=== PATIENT | female | born 1995 | race Caucasian/White ===

== ENCOUNTER → 2019-05-25 | Outpatient (CLI) | payer MEDICAID ==
[~2019-05-25] MED LIST: AMOX-358 PO; CODE-54 PO; Ibuprofen PO; METR500T PO; PNV51CAP PO
--- NOTE | 2019-05-25 14:10 | Diagnostic Imaging Report ---
INDICATION: survey. TECHNIQUE: Multiple real-time grayscale images were obtained over the gravid uterus. COMPARISON: None. FINDINGS: There is a single live fetus in a breech presentation. heart rate was recorded at 139 beats per minute. Placenta is fundal. Amniotic fluid volume is normal. Cervical length is 4.4 cm. survey shows kidneys, bladder and stomach to be unremarkable. brain is unremarkable. There is a four-chamber heart. There is a three-vessel cord with normal insertion. spine is unremarkable. Maternal adnexa was not evaluated. Biometrical measurements are as follows: Biparietal 4.87 cm, age 20 weeks 6 days. Head circumference 18.49 cm, age 20 weeks 6 days. Abdominal circumference 17.20 cm, age 22 weeks 2 days. Femur length 3.53 cm, age 21 weeks 2 days. Sonographic estimate age: 21 weeks 3 days. Sonographic estimated date of delivery: 10/02/2019. Estimated Weight: 435 gm (+/- 64 gm). LMP percentile: 98%. heart rate: 139 beats per minute. number: 1 of 1. IMPRESSION: Single live IUP 21 weeks 3 days gestational age. The estimated date of confinement sonographically is 10/02/2019. Dictated by: Dictated on workstation # [id number]
== END ==
LOC: RAD 11:23
PROVIDERS: ATTEND Obstetrics & Gynecology
DX: Z36.89 Encounter for other specified antenatal screening (principal); Z3A.21 21 weeks gestation of pregnancy
CPT/HCPCS: 76805

== ENCOUNTER 2019-08-11 21:32 | Outpatient (CLI) | payer MEDICAID ==
[~2019-08-11] VITALS: Ht 180.3 cm; Wt 138.8 kg
--- NOTE | 2019-08-11 21:38 | NUR ---
BETY SUNG Jackie presented to unit via from ED, accompanied by SO, with c/o CONTRACTIONS. PINEDABETY Jackie weighed, gowned, voided, and to bed. EFHM and TOCO applied, VS taken. MICHAELBETY Yanes oriented to bed controls, call light, TV, heat, and A/C controls. Pt. denies bleeding or leaking of fluids. Confirms movement.
[2019-08-11 21:55] VITALS: BP 125/62
[2019-08-11 22:05] LABS: BILIRUBIN,URINE NEGATIVE (NEGATIVE); CLARITY,URINE CLEAR; COLOR,URINE YELLOW; GLUCOSE, URINE (UA) NEGATIVE (NEGATIVE); KETONES,URINE NEGATIVE (NEGATIVE); LEUKOCYTE ESTERASE ,URINE NEGATIVE (NEGATIVE); NITRITE,URINE NEGATIVE (NEGATIVE); PH,URINE 6 (5-9); PROTEIN,URINE NEGATIVE (NEGATIVE)
[2019-08-11 22:12] LABS: RBC,URINE 0-2 /HPF
[2019-08-11 22:13] LABS: BACTERIA,URINE TRACE /HPF; WBC,URINE 0-2 /HPF
--- NOTE | 2019-08-11 22:26 | NUR ---
Dr. Hammond called and informed that pt of Dr. Aparicio presented to the ER with complaints of contractions. Dr. Hammond informed that pt is 32/6, , and denies any bleeding or LOF. Dr. Hammond informed that urine was clean and showed no signs of UTI. Informed that pt has had two contractions in the thirty minutes of being on the monitor. Ctxs are about 10 minutes apart lasting 60-70seconds. informed that strip is reactive and vitals are WNL. states to ask pt is she has had intercourse and to let her know. also orders to continue monitoring pt at this time.
--- NOTE | 2019-08-11 22:29 | NUR ---
Dr. Hammond informed that pt has not had intercourse recently. orders to be checked and watch for an hour, then rechecked.
--- NOTE | 2019-08-11 23:57 | NUR ---
Dr. Hammond called with results of SVE and contraction pattern. states that pt can go home, but to provide education on labor process.
[2019-08-12] VITALS: BP 117/59
[2019-08-12 00:13] VITALS: BP 125/62
--- NOTE | 2019-08-14 09:33 | Physician Query-Final Dx ---
Clinic Account Progress/Dx Physician Query: Please give diagnosis Please include # weeks gestation Date of Service Aug 11, 2019 at 21:32 PEPE ROWAN Aug 14, 2019 09:33 POS
== END 2019-08-12 00:10 | disposition home or self-care (01) ==
LOC: LDRP 21:32 → WSo 21:32
PROVIDERS: ATTEND Obstetrics & Gynecology
DX: O62.8 Other abnormalities of forces of labor (principal); Z3A.31 31 weeks gestation of pregnancy
CPT/HCPCS: 81000; 99213

== ENCOUNTER 2019-09-28 17:21 | Outpatient (CLI) | payer MEDICAID ==
[~2019-09-28] VITALS: Ht 177.8 cm; Wt 144.0 kg
--- NOTE | 2019-09-28 17:05 | NUR ---
BETY SUNG presented to unit via ambulatory from ED, accompanied by father of baby , with c/o CONTRACTIONS. BETY SUNG weighed, gowned, voided, and to bed. EFHM and TOCO applied, VS taken. BETY SUNG oriented to bed controls, call light, TV, heat, and A/C controls.
--- NOTE | 2019-09-28 17:15 | NUR ---
Dr Aparicio here - informed him she just arrived. 1806 Dr Aparicio called in to L&D to inquire about pt status. 3-4 cms, 40%,-3 with contractions 2-3 minutes apart. Physician will call again after 190. Pt states she was 3 cms in office yesterday.
[2019-09-28 18:04] VITALS: BP 112/58
--- NOTE | 2019-09-28 19:43 | NUR ---
REFER TO LABOR FLOW SHEET.
--- NOTE | 2019-09-28 19:57 | NUR ---
DISCHARGE PAPERS PROVIDED AND REVIEWED WITH PT, PT VERBALIZES UNDERSTANDING AND DENIES ANY QUESTIONS AT THIS TIME. PAPER SIGNED.
--- NOTE | 2019-09-28 20:00 | NUR ---
PT DISCHARGED FROM [facility] TO [facility] IN STABLE CONDITION ACC BY S/O.
--- NOTE | 2019-09-29 08:06 | Physician Query-Final Dx ---
PEPE ROWAN 09/29/19 0805: Clinic Account Progress/Dx Physician Query: Please give diagnosis Please give # weeks gestation Date of Service Sep 28, 2019 at 17:21 ELVIS GREENE DO 09/29/19 0958: Clinic Account Progress/Dx DIAGNOSIS: Diagnosis 38 week IUP Prolonged latent phase labor PEPE ROWAN Sep 29, 2019 08:05 POSELVIS GREENE DO Sep 29, 2019 09:58 POS
== END 2019-09-28 20:00 | disposition home or self-care (01) ==
LOC: LDRP 17:21 → WSo 17:21
PROVIDERS: ATTEND Obstetrics & Gynecology
DX: O63.9 Long labor, unspecified (principal); Z3A.38 38 weeks gestation of pregnancy
CPT/HCPCS: 99213

== ENCOUNTER 2019-10-04 06:00 | Inpatient (IN) | payer MEDICAID ==
[~2019-10-04] VITALS: Ht 177 cm; Wt 142.6 kg
[2019-10-04] VITALS (41 sets, daily range): BP systolic 98–147; BP diastolic 53–93
[2019-10-04] MEDS ORDERED: D5 LR IV SOLUTION 1,000 ML IV ONE (06:21)
[2019-10-04] MEDS ORDERED: D5 LR IV SOLUTION 1,000 ML IV SCH (06:23)
[2019-10-04] MEDS ORDERED: MINERAL OIL CONCENTRATE 99.9% 15 ML UDC TOP PRN (06:30)
[2019-10-04 06:51] LABS: BASOPHILS % (AUTO) 0 % (0-10); EOSINOPHILS # (AUTO) 0.1 10^3/uL (0.0-0.3); EOSINOPHILS % (AUTO) 1 % (0-10); HEMATOCRIT 33 % (35-52); HEMOGLOBIN 10.7 G/DL (11.5-16.0); LYMPHOCYTES # (AUTO) 2.3 X 10^3 (1.0-4.0); LYMPHOCYTES % (AUTO) 23 % (12-44); MEAN CORPUSCULAR HEMOGLOBIN 29 PG (25-34); MEAN CORPUSCULAR HGB CONC 32 G/DL (32-36); MEAN CORPUSCULAR VOLUME 88 FL (80-99); MONOCYTES % (AUTO) 10 % (0-12); NEUTROPHILS # (AUTO) 6.7 X 10^3 (1.8-7.8); NEUTROPHILS % (AUTO) 66 % (42-75); PLATELET COUNT 183 10^3/uL (130-400); RED CELL DISTRIBUTION WIDTH 13.4 % (10.0-14.5); WHITE BLOOD COUNT 10.1 10^3/uL (4.3-11.0)
[2019-10-04] MEDS ORDERED: OXYTOCIN/NORMAL SALINE 500 ML IV SCH ×2 (08:20→16:07)
--- NOTE | 2019-10-04 08:53 | History & Physical-OB ---
OB - Chief Complaint & HPI Date/Time Date of Admission: Date of Admission: Oct 04, 2019 at 06:15 Date seen by a Provider: Oct 04, 2019 Time Seen by a Provider: 08:00 Chief Complaint/History OB-Reason for Admission/Chief: Induction of Labor Hx : 3 Hx Para: 1 Expected Date of Delivery: Oct 11, 2019 Gestational Age in Weeks: 39 Indication for induction: other (elective) Admission Nurse Assessment Rev: Yes History of Labs A pos Antibody neg RI RPR NR HBsAg NR HIV NR GC neg GBS neg Allergies and Home Medications Allergies Coded Allergies: No Known Drug Allergies (Unverified , 09/28/19) Patient Home Medication List Home Medication List Reviewed: Yes OB - History Hx of Present Care: Yes Ultrasounds: Normal mid trimester US Obstetrical Complications: None Medical Complications: None Delivery History Adverse Rxn to Tranfusion: No Patient Past Medical History n/a Social History/Family History HIV/AIDS: No Recent Infectious Disease Expo: No Sexually Transmitted Disease: No Alcohol Use: Denies Use Recreational Drug Use: No 2nd Hand Smoke Exposure: No Immunizations Hepatitis A: No Hepatitis B: No Tetanus Booster (TDap): Unknown Date of Influenza Vaccine: Jul 18, 2019 OB - Admission Exam Physical Exam Vitals: Vital Signs 10/04/19 06:54 Temp 36.1 Pulse 102 Resp 18 Pulse Ox 97 O2 Delivery Room Air HEENT: NCAT Heart: Rhythm Normal Lungs: Clear Abdomen: Gravid Extremities: Normal Reflexes: Normal Cervical Dilatation: 3cm Effacement: 75% Station: -1 Membranes: Intact Heart Rate: 130's Accelerations: Accelerations Present Decelerations: No Decelerations Short Term Variability: Present Shrinker Variability: Average (6-25) Contractions on Admission: 6-10 Minutes Apart Intensity: Moderate Sanchez Scoring Tool (Modified) Dilation (cm): 3-4cm (2) Effacement (%): 51-79% (2) Descent/Station: -1,0 (2) Cervix Consistency: Soft (2) Cervix Position: Anterior (2) Add 1 point for: Each previous vaginal delivery (1) Labs Laboratory Tests Test 10/04/19 06:40 Range/Units White Blood Count 10.1 4.3-11.0 10^3/uL Red Blood Count 3.74 L 4.35-5.85 10^6/uL Hemoglobin 10.7 L 11.5-16.0 G/DL Hematocrit 33 L 35-52 % Mean Corpuscular Volume 88 80-99 FL Mean Corpuscular Hemoglobin 29 25-34 PG Mean Corpuscular Hemoglobin Concent 32 32-36 G/DL Red Cell Distribution Width 13.4 10.0-14.5 % Platelet Count 183 130-400 10^3/uL Mean Platelet Volume 7.4-10.4 FL Neutrophils (%) (Auto) 66 42-75 % Lymphocytes (%) (Auto) 23 12-44 % Monocytes (%) (Auto) 10 0-12 % Eosinophils (%) (Auto) 1 0-10 % Basophils (%) (Auto) 0 0-10 % Neutrophils # (Auto) 6.7 1.8-7.8 X 10^3 Lymphocytes # (Auto) 2.3 1.0-4.0 X 10^3 Monocytes # (Auto) 1.0 0.0-1.0 X 10^3 Eosinophils # (Auto) 0.1 0.0-0.3 10^3/uL Basophils # (Auto) 0.0 0.0-0.1 10^3/uL OB - Assessment/Plan/Diagnosis Assessment Assessment: active labor Admission Dx 24 yo @ 39 weeks Elective induction of labor GBS neg Admission Status: Inpatient Order (span 2 midnights) Reason for Inpatient Admission: Term induction of labor Plan Induction Method: ELVIS SOMMERS DO Oct 04, 2019 08:53
[2019-10-04] MEDS ORDERED: SUFENTA 0.6MCG/ML BUPIVA 0.125 100 ML ONE (09:48)
[2019-10-04] MEDS ORDERED: LACTATED RINGERS 1,000 ML IV SCH (10:27)
[2019-10-04] MEDS ORDERED: METOCLOPRAMIDE INJ 10 MG/2 ML (REGLAN) IV PRN (10:30)
[2019-10-04] MEDS ORDERED: ONDANSETRON 4 MG/2 ML (SDV) Z0FRAN IV PRN (10:30)
[2019-10-04] MEDS ORDERED: EPIDURAL (SUFENTA 0.6MCG/ML BUPIVA 0.125%) 100 ML BAG EPI SCH (10:30)
[2019-10-04] MEDS ORDERED: NALOXONE 0.4 MG/ML 1 ML (NARCAN) VIAL IV PRN ×2 (10:30)
[2019-10-04] MEDS ORDERED: diphenhydrAMINE 50 MG/ML INJ (BENADRYL) IV PRN (10:30)
[2019-10-04] MEDS ORDERED: CATHETER FLUSH 10 ML SYR IV SCH (14:00)
[2019-10-04] MEDS ORDERED: IBUPROFEN 600 MG (MOTRIN) TAB PO ONE (16:09)
--- NOTE | 2019-10-04 16:51 | OB Labor & Delivery Record ---
L&D History Date of Service Date of Service: Oct 04, 2019 History Expected Date of Delivery: Oct 11, 2019 Gestational Age in Weeks: 39 Hx : 3 Hx Para: 1 Complications Events: Routine care Operative Indications (Cesarea: N/A-Vaginal Delivery Intrapartal Events: None L&D Stage1 Stage One Onset of Labor - Date: Oct 04, 2019 Monitors and Tracing Monitor Mode: External Heart Rate: 125 Monitor Accelerations: Uniform Monitor Decelerations: Variable Station: -1 Senior Care Variability: Average (6-10) Short Term Variability: Present Presentation: Vertex Vital Signs VS - Last 72 Hours, by Label 10/04/19 10/04/19 10/04/19 10/04/19 06:54 07:40 08:30 08:45 Temp 36.1 36.2 Pulse 102 90 90 83 Resp 18 18 18 18 B/P (MAP) 128/62 (84) 128/80 (96) 131/87 (102) Pulse Ox 97 O2 Delivery Room Air Room Air Room Air Room Air 10/04/19 10/04/19 10/04/19 10/04/19 09:00 09:15 09:30 09:45 Pulse 93 95 86 88 Resp 18 18 18 18 B/P (MAP) 131/90 (104) 136/68 (90) 132/78 (96) 131/76 (94) O2 Delivery Room Air Room Air Room Air Room Air 10/04/19 10/04/19 10/04/19 10/04/19 10:00 10:05 10:10 10:15 Temp 36.3 Pulse 80 96 91 88 Resp 18 18 18 18 B/P (MAP) 136/69 (91) 137/71 (93) 141/78 (99) 133/67 (89) Pulse Ox 100 100 97 O2 Delivery Room Air Room Air Room Air Room Air 10/04/19 10/04/19 10/04/19 10/04/19 10:15 10:20 10:30 10:33 Pulse 88 88 90 84 Resp 18 18 18 18 B/P (MAP) 133/67 (89) 123/62 (82) 121/67 (85) 98/54 (69) Pulse Ox 100 99 98 98 O2 Delivery Room Air Room Air Room Air Room Air 10/04/19 10/04/19 10/04/1918/19 10:36 10:39 10:42 10:45 Pulse 88 79 76 80 Resp 18 18 18 18 B/P (MAP) 108/57 (74) 111/57 (75) 107/53 (71) 109/59 (76) Pulse Ox 98 98 98 98 O2 Delivery Room Air Room Air Room Air Room Air 10/04/19 10/04/19 10/04/19 10/04/19 10:50 10:55 11:00 11:05 Pulse 87 86 82 83 Resp 18 18 18 18 B/P (MAP) 110/58 (75) 111/59 (76) 116/56 (76) 119/58 (78) Pulse Ox 98 100 99 100 O2 Delivery Room Air Room Air Room Air Room Air 10/04/19 10/04/19 10/04/19 10/04/19 11:10 11:15 11:30 11:45 Pulse 92 82 83 85 Resp 18 18 18 18 B/P (MAP) 127/59 (81) 114/59 (77) 110/55 (73) 115/57 (76) Pulse Ox 99 98 99 99 O2 Delivery Room Air Room Air Room Air Room Air 10/04/19 10/04/19 10/04/19 10/04/19 11:45 12:00 12:15 12:30 Temp 36.1 Pulse 97 93 84 Resp 18 18 18 B/P (MAP) 123/59 (80) 129/66 (87) 122/63 (82) Pulse Ox 99 99 99 O2 Delivery Room Air Room Air Room Air Room Air 10/04/19 10/04/19 10/04/19 10/04/19 12:45 13:00 13:15 13:30 Pulse 91 80 90 88 Resp 18 18 18 18 B/P (MAP) 138/93 (108) 130/62 (84) 124/58 (80) 129/78 (95) Pulse Ox 99 98 99 99 O2 Delivery Room Air Room Air Room Air Room Air 10/04/19 10/04/19 10/04/19 10/04/19 14:14 14:29 14:44 15:03 Temp 36.9 36.4 36.8 36.9 Pulse 111 114 104 92 Resp 18 18 18 18 B/P (MAP) 146/75 (98) 147/63 (91) 121/58 (79) 121/63 (82) O2 Delivery Room Air Room Air Room Air Room Air 10/04/19 10/04/19 15:14 15:30 Pulse 94 95 Resp 18 18 B/P (MAP) 126/70 (88) 145/63 (90) O2 Delivery Room Air Room Air Rupture of Membranes Spontaneous Ruture of Membrane: No Amniotic Membrane Rupture Time: 0800 Amniotic Membrane Fluid Desc.: Clear Vaginal Bleeding Description: Normal Show Induction/Anesthesia Epidural Cath Placement - Time: 1013 Progress/Notes Patient progressed with complete and +2 station using 4 u Pitocin dosing and AROM L&D Stage2 Stage Two Stage II Date: Oct 04, 2019 Monitors and Tracing Monitor Mode: External Heart Rate: 125 Monitor Accelerations: Uniform Monitor Decelerations: Variable Senior Care Variability: Average (6-10) Short Term Variability: Present Position: Right Occiput Anterior Presentation: Vertex Cord Descript/Complications Cord Vessel Description: 3 Vessels Complications nuchal cord reduced x 1 Delivery Type Infant Delivery Method: Spontaneous Vaginal Anterior Shoulder: Right Episiotomy/Perineal Laceration Laceraction(s)/Extensions: Yes Episiotomy Description: Perineal Extension/lac, 2nd degree Degree (describe repair) 2nd degree perineal laceration repaired using 3-0 rapide vicryl suture Condition of Delivery 1 minute Comment: 8 5 minute Comment: 9 Notes Live male infant weight 9lbs 9oz Condition of Infant Condition of Infant: Living Exam: No Observed Abnormalities Resuscitation Resuscitation: N/A - Spontaneous Resp L&D Stage3 Stage Three Stage III Date: Oct 04, 2019 Pictocin Pitocin Administration mu/min: 4 Pitocin ml/hr: 4 Pitocin Administration Comment: 0930 pitocin increased Placenta Delivery Placenta Delivery: Spontaneous Delivery Summary Summary Estimated blood loss (mL): 300 Attending at delivery: Elvis Greene DO Condition of Delivery Examined: Cervix Examined, Uterus Explored Post Hemorrhage: No Condition of Mother stable Condition of Infant (s) stable ELVIS GREENE DO Oct 04, 2019 16:51
[2019-10-04] MEDS ORDERED: IBUPROFEN 600 MG (MOTRIN) TAB PO SCH (17:00)
[2019-10-04] MEDS: WITCH HAZEL(TUCKS) 40 EA JAR TOP PRN (17:55)
[2019-10-04] MEDS: BENZOCAINE/MENTHOL (DERMOPLAST) 56 ML CAN TP PRN (17:55)
[2019-10-04] MEDS: IBUPROFEN 600 MG (MOTRIN) TAB PO SCH (21:56)
[2019-10-04] MEDS: ACETAMINOPHEN 500 MG TAB (TYLENOL) PO SCH (21:56)
[2019-10-04] MEDS: DOCUSATE SODIUM 100 MG (COLACE) CAP PO SCH (21:56)
[2019-10-04] MEDS ORDERED: Benzocaine/Menthol TP (21:59)
[2019-10-04] MEDS ORDERED: IBUP-844 PO (21:59)
[2019-10-04] MEDS ORDERED: DOCU100C37 PO (21:59)
--- NOTE | 2019-10-04 22:00 | Discharge Inst-Women's Service ---
Discharge Inst-Women's Serv Depart Medication/Instructions New, Converted or Re-Newed RX: RX on Chart Final Diagnosis PPD 1 NVD Problems Reviewed?: Yes Consults/Follow Up Additional Follow Up: Yes Orders/Referrals Dr. Greene in 6 weeks Activity Activity: Activity as Tolerated Driving Instructions: No Driving for 1 Week NO SMOKING: NO SMOKING Nothing Inside Vagina: No Douching, No [place], No Tampons Diet Discharge Diet: No Restrictions Symptoms to Report to : Bleeding Excessive, Pain Increased, Fever Over 101 Degrees F, Vaginal Bleeding Increase, Questions/Concerns For Any Problems or Questions: Contact Your Physician ELVIS GREENE DO Oct 04, 2019 22:00
[2019-10-05] VITALS: BP 111/53
[2019-10-05] MEDS: IBUPROFEN 600 MG (MOTRIN) TAB PO SCH ×4 (04:22→21:48)
[2019-10-05 04:24] VITALS: BP 130/89
[2019-10-05 06:14] LABS: BASOPHILS % (AUTO) 0 % (0-10); EOSINOPHILS # (AUTO) 0.1 10^3/uL (0.0-0.3); EOSINOPHILS % (AUTO) 1 % (0-10); HEMATOCRIT 31 % (35-52); HEMOGLOBIN 9.8 G/DL (11.5-16.0); LYMPHOCYTES # (AUTO) 2.9 X 10^3 (1.0-4.0); LYMPHOCYTES % (AUTO) 28 % (12-44); MEAN CORPUSCULAR HEMOGLOBIN 28 PG (25-34); MEAN CORPUSCULAR HGB CONC 32 G/DL (32-36); MEAN CORPUSCULAR VOLUME 89 FL (80-99); MONOCYTES # (AUTO) 0.9 X 10^3 (0.0-1.0); MONOCYTES % (AUTO) 9 % (0-12); NEUTROPHILS # (AUTO) 6.6 X 10^3 (1.8-7.8); NEUTROPHILS % (AUTO) 63 % (42-75); PLATELET COUNT 163 10^3/uL (130-400); RED CELL DISTRIBUTION WIDTH 13.6 % (10.0-14.5); WHITE BLOOD COUNT 10.5 10^3/uL (4.3-11.0)
[2019-10-05 08:00] VITALS: BP 123/65
[2019-10-05] MEDS: DOCUSATE SODIUM 100 MG (COLACE) CAP PO SCH ×2 (08:18→21:48)
[2019-10-05] MEDS: ACETAMINOPHEN 500 MG TAB (TYLENOL) PO SCH ×2 (08:19→16:00)
--- NOTE | 2019-10-05 08:24 | Postpartum Progress Note ---
Note Note Day # 1 Subjective: Patient is without complaints. Ambulating, voiding. Tolerating a regular diet without nausea or vomiting. Normal lochia. Pain is well controlled with oral pain medications. Objective: Physical Exam: General - Alert and oriented, no apparent distress Abdomen - Soft, appropriately tender to palpation, non-distended, fundus firm at umbilicus Extremities - no edema, negative Joselito's bilaterally Assessment: POD 1 NVD Acute blood loss anemia Plan: Routine care. Encourage breast feeding. Encourage ambulation. Ferrous sulfate supplementation. Plan for discharge today Vitals - Labs Vital Signs - I&O Vital Signs Date Time Temp Pulse Resp B/P (MAP) Pulse Ox O2 Delivery O2 Flow Rate FiO2 10/05/19 04:24 36.4 74 18 130/89 (103) Room Air 10/05/19 00:00 36.7 68 18 111/53 (72) 97 Room Air 10/04/19 20:59 36.7 75 18 114/76 (89) 98 Room Air 10/04/19 15:30 95 18 145/63 (90) Room Air 10/04/19 15:14 94 18 126/70 (88) Room Air 10/04/19 15:03 36.9 92 18 121/63 (82) Room Air 10/04/19 14:44 36.8 104 18 121/58 (79) Room Air 10/04/19 14:29 36.4 114 18 147/63 (91) Room Air 10/04/19 14:14 36.9 111 18 146/75 (98) Room Air 10/04/19 13:30 88 18 129/78 (95) 99 Room Air 10/04/19 13:15 90 18 124/58 (80) 99 Room Air 10/04/19 13:00 80 18 130/62 (84) 98 Room Air 10/04/19 12:45 91 18 138/93 (108) 99 Room Air 10/04/19 12:30 36.1 84 18 122/63 (82) 99 Room Air 10/04/19 12:15 93 18 129/66 (87) 99 Room Air 10/04/19 12:00 97 18 123/59 (80) 99 Room Air 10/04/19 11:45 Room Air 10/04/19 11:45 85 18 115/57 (76) 99 Room Air 10/04/19 11:30 83 18 110/55 (73) 99 Room Air 10/04/19 11:15 82 18 114/59 (77) 98 Room Air 10/04/19 11:10 92 18 127/59 (81) 99 Room Air 10/04/19 11:05 83 18 119/58 (78) 100 Room Air 10/04/19 11:00 82 18 116/56 (76) 99 Room Air 10/04/19 10:55 86 18 111/59 (76) 100 Room Air 10/04/19 10:50 87 18 110/58 (75) 98 Room Air 10/04/19 10:45 80 18 109/59 (76) 98 Room Air 10/04/19 10:42 76 18 107/53 (71) 98 Room Air 10/04/19 10:39 79 18 111/57 (75) 98 Room Air 10/04/19 10:36 88 18 108/57 (74) 98 Room Air 10/04/19 10:33 84 18 98/54 (69) 98 Room Air 10/04/19 10:30 90 18 121/67 (85) 98 Room Air 10/04/19 10:20 88 18 123/62 (82) 99 Room Air 10/04/19 10:15 88 18 133/67 (89) 100 Room Air 10/04/19 10:15 88 18 133/67 (89) 97 Room Air 10/04/19 10:10 91 18 141/78 (99) 100 Room Air 10/04/19 10:05 96 18 137/71 (93) 100 Room Air 10/04/19 10:00 36.3 80 18 136/69 (91) Room Air 10/04/19 09:45 88 18 131/76 (94) Room Air 10/04/19 09:30 86 18 132/78 (96) Room Air 10/04/19 09:15 95 18 136/68 (90) Room Air 10/04/19 09:00 93 18 131/90 (104) Room Air 10/04/19 08:45 83 18 131/87 (102) Room Air 10/04/19 08:30 90 18 128/80 (96) Room Air I & O 10/05/19 07:00 Intake Total 1000 ml Balance 1000 ml Labs Laboratory Tests 10/05/19 05:44: White Blood Count 10.5, Red Blood Count 3.46L, Hemoglobin 9.8L, Hematocrit 31L, Mean Corpuscular Volume 89, Mean Corpuscular Hemoglobin 28, Mean Corpuscular Hemoglobin Concent 32, Red Cell Distribution Width 13.6, Platelet Count 163, Mean Platelet Volume , Neutrophils (%) (Auto) 63, Lymphocytes (%) (Auto) 28, Monocytes (%) (Auto) 9, Eosinophils (%) (Auto) 1, Basophils (%) (Auto) 0, Neutrophils # (Auto) 6.6, Lymphocytes # (Auto) 2.9, Monocytes # (Auto) 0.9, E osinophils # (Auto) 0.1, Basophils # (Auto) 0.0 ELVIS GREENE DO Oct 05, 2019 08:24
--- NOTE | 2019-10-05 10:56 | Anesthesia-Regional Post-Op ---
Regional Patient Condition Mental Status: Alert, Oriented x3 Circulation: Same as Pre-Op Headache: Absent Sensation: Full Recovery Motor Block: Absent Post Op Complications Complications None Follow Up Care/Instructions Patient Instructions None needed. Anesthesia/Patient Condition Patient is doing well, no complaints, stable vital signs, no apparent adverse anesthesia problems. No complications reported per nursing. SHELLEY BROWN CRNA Oct 05, 2019 10:56
[2019-10-05 14:13] VITALS: BP 125/57
[2019-10-05 21:46] VITALS: BP 120/74
[2019-10-06] MEDS: ACETAMINOPHEN 500 MG TAB (TYLENOL) PO SCH ×2 (01:07→09:20)
[2019-10-06 03:47] VITALS: BP 120/83
[2019-10-06] MEDS: IBUPROFEN 600 MG (MOTRIN) TAB PO SCH ×2 (03:48→09:19)
[2019-10-06 09:18] VITALS: BP 117/65
[2019-10-06] MEDS: WITCH HAZEL(TUCKS) 40 EA JAR TOP PRN (09:18)
[2019-10-06] MEDS: BENZOCAINE/MENTHOL (DERMOPLAST) 56 ML CAN TP PRN (09:19)
[2019-10-06] MEDS: DOCUSATE SODIUM 100 MG (COLACE) CAP PO SCH (09:20)
--- NOTE | 2019-10-06 10:11 | Postpartum Progress Note ---
Note Note Day # 1 Subjective: Patient is without complaints. Ambulating, voiding. Tolerating a regular diet without nausea or vomiting. Normal lochia. Pain is well controlled with oral pain medications. Objective: Physical Exam: General - Alert and oriented, no apparent distress Abdomen - Soft, appropriately tender to palpation, non-distended, fundus firm at umbilicus Extremities - no edema, negative Joselito's bilaterally Assessment: PPD 2 NVD Acute blood loss anemia Plan: Routine care. Encourage breast feeding. Encourage ambulation. Ferrous sulfate supplementation. Plan for discharge today Vitals - Labs Vital Signs - I&O Vital Signs Date Time Temp Pulse Resp B/P (MAP) Pulse Ox O2 Delivery O2 Flow Rate FiO2 10/06/19 03:47 36.6 66 16 120/83 (95) 98 Room Air 10/05/19 21:46 36.1 70 16 120/74 (89) 99 Room Air 10/05/19 14:13 36.4 84 16 125/57 (79) 96 Room Air ELVIS GREENE DO Oct 06, 2019 10:11
== END 2019-10-06 13:00 | disposition home or self-care (01) | DRG 806 ==
LOC: LDRP 06:15
PROVIDERS: ADMIT Obstetrics & Gynecology; ATTEND Obstetrics & Gynecology
PROC: 10E0XZZ Delivery of Products of Conception, External Approach (ICD-10-PCS; principal; 2019-10-04)
PROC: 0KQM0ZZ Repair Perineum Muscle, Open Approach (ICD-10-PCS; 2019-10-04)
PROC: 3E033VJ Introduction of Other Hormone into Peripheral Vein, Percutaneous Approach (ICD-10-PCS; 2019-10-04)
PROC: 10907ZC Drainage of Amniotic Fluid, Therapeutic from Products of Conception, Via Natural or Artificial Opening (ICD-10-PCS; 2019-10-04)
PROC: 0W8NXZZ Division of Female Perineum, External Approach (ICD-10-PCS; 2019-10-04)
DX: O69.81X0 Labor and delivery complicated by cord around neck, without compression, not applicable or unspecified (principal); Z37.0 Single live birth; D62 Acute posthemorrhagic anemia; O90.81 Anemia of the puerperium; Z3A.39 39 weeks gestation of pregnancy
CPT/HCPCS: 36415; 85025; 86850; 86900; 86901

== ENCOUNTER → 2023-04-16 | Outpatient (CLI) | payer MEDICAID ==
[~2023-04-16] MED LIST changes: +Benzocaine/Menthol TP; +DOCU100C37 PO; +IBUP-844 PO
--- NOTE | 2023-04-16 15:47 | Diagnostic Imaging Report ---
INDICATION: patient, survey TECHNIQUE: Multiple real-time grayscale images were obtained over the gravid uterus. COMPARISON: No prior studies during this . FINDINGS: A single live intrauterine fetus is seen measuring 20 weeks 4 days in size. Sonographic EDC is 08/30/2023. The fetus is in transverse orientation. Placenta is anterior with no evidence of previa. Amniotic fluid is 18.5 cm. Cervical length is 4 cm. There is some thickening of the lower uterine wall which may be due to a contraction. survey shows normal-appearing kidneys and bladder. Intracranial ventricles appear normal. Distal stomach appear normal. Four-chamber heart view. Normal. Three-vessel cord and cord insertion were normal. The views of the spine were unremarkable. There is no free fluid seen. Biometrical measurements are as follows: Biparietal 4.75 cm, age 20 weeks 3 days. Head circumference 17.81 cm, age 20 weeks 2 days. Abdominal circumference 15.80 cm, age 21 weeks 0 days. Femur length 3.36 cm, age 20 weeks 4 days. Sonographic estimate age: 20 weeks 4 days. Sonographic estimated date of delivery: 08/30/2023. Estimated Weight: 371 gm (+/- 54 gm). LMP percentile: 76%. heart rate: 138 beats per minute. number: 1 of 1. IMPRESSION: Single live intrauterine fetus measuring 18 weeks 5 days in size. There is no detectable abnormality. There is some thickening of the lower uterus which may be due to underlying contraction. Consider followup as clinically warranted. Dictated by: Dictated on workstation # [id number]
== END ==
LOC: RAD 12:37
PROVIDERS: ATTEND Nurse Practitioner Women's Health
DX: Z34.92 Encounter for supervision of normal pregnancy, unspecified, second trimester (principal); Z3A.18 18 weeks gestation of pregnancy
CPT/HCPCS: 76805

== ENCOUNTER → 2023-07-09 | Outpatient (CLI) | payer MEDICAID | LOC: LABNPT 09:10 | PROVIDERS: ATTEND Nurse Practitioner Women's Health | DX: O13.9 Gestational [pregnancy-induced] hypertension without significant proteinuria, unspecified trimester (principal) | CPT/HCPCS: 82570; 84156 ==

== ENCOUNTER → 2023-07-23 | Outpatient (CLI) | payer MEDICAID | LOC: LABNPT 09:31 | PROVIDERS: ATTEND Nurse Practitioner Women's Health | DX: O13.9 Gestational [pregnancy-induced] hypertension without significant proteinuria, unspecified trimester (principal) | CPT/HCPCS: 82570; 84156 ==

== ENCOUNTER → 2023-08-06 | Outpatient (CLI) | payer MEDICAID ==
[~2023-08-06] MED LIST changes: +ASPI-999 PO
== END ==
LOC: LABNPT 10:01
PROVIDERS: ATTEND Nurse Practitioner Women's Health
DX: O13.9 Gestational [pregnancy-induced] hypertension without significant proteinuria, unspecified trimester (principal)
CPT/HCPCS: 82570; 84156

== ENCOUNTER 2023-08-11 17:05 | Outpatient (CLI) | payer MEDICAID ==
[~2023-08-11] VITALS: Ht 180.3 cm; Wt 150.5 kg
[~2023-08-11 17:05] MED LIST changes: -ASPI-999 PO
[2023-08-11 17:23] VITALS: BP 126/74
[2023-08-11 17:36] VITALS: BP 124/68
[2023-08-11 17:57] VITALS: BP 129/76
[2023-08-11] MEDS ORDERED: ASPI-999 PO (18:15)
[2023-08-11 18:23] LABS: BACTERIA,URINE FEW /HPF; BILIRUBIN,URINE NEGATIVE (NEGATIVE); CLARITY,URINE CLEAR; COLOR,URINE YELLOW; GLUCOSE, URINE (UA) NEGATIVE (NEGATIVE); KETONES,URINE 2+ (NEGATIVE); LEUKOCYTE ESTERASE ,URINE NEGATIVE (NEGATIVE); NITRITE,URINE NEGATIVE (NEGATIVE); PH,URINE 6.5 (5-9); PROTEIN,URINE NEGATIVE (NEGATIVE); RBC,URINE 0-2 /HPF; SQUAMOUS EPITHELIAL CELL,UR 25-50 /HPF; WBC,URINE 0-2 /HPF
--- NOTE | 2023-08-11 18:36 | OB Triage Report ---
Standard Progress Note Progress Notes/Assess & Plan Date Seen by a Provider: Aug 11, 2023 Time Seen by a Provider: 18:30 Expected Date of Delivery: Sep 02, 2023 Gestational Age in Weeks: 36 Gestational Age in Days: 6 LMP/BALDEV Comment: This 28yo presents @36w6d with c/o elevated BP at work She denies BANKS vision changes, n/v ctxs, LOF VB FHR 120s Reactive TOCOs none BP 120/70s Progress/Assessment & Plan IUP @36w6d BP stable and looks good DC to home PIH & Labor precautions Keep next appt. HENRY ARREDONDO DO Aug 11, 2023 18:36
== END 2023-08-11 19:07 | disposition home or self-care (01) ==
LOC: WSo 17:05 → LDRP 17:05 → WSo 19:07
PROVIDERS: ATTEND Obstetrics & Gynecology
DX: O16.3 Unspecified maternal hypertension, third trimester (principal); Z3A.36 36 weeks gestation of pregnancy
CPT/HCPCS: 81000; 99213

== ENCOUNTER → 2023-08-20 | Outpatient (CLI) | payer MEDICAID ==
[~2023-08-20] MED LIST changes: +ACET-93 PO; +ASPI-999 PO; +BENZ78AE5 TP; +DIBU30OI TOP; +FERR325T24 PO
== END ==
LOC: LABNPT 10:35
PROVIDERS: ATTEND Obstetrics & Gynecology
DX: O13.9 Gestational [pregnancy-induced] hypertension without significant proteinuria, unspecified trimester (principal); Z3A.00 Weeks of gestation of pregnancy not specified
CPT/HCPCS: 82570; 84156

== ENCOUNTER 2023-08-23 06:30 | Inpatient (IN) | payer MEDICAID ==
[2023-08-23] VITALS (63 sets, daily range): BP systolic 96–166; BP diastolic 51–89
[~2023-08-23] VITALS: Ht 180.3 cm; Wt 153.6 kg
[~2023-08-23 06:30] MED LIST changes: -ACET-93 PO; -BENZ78AE5 TP; -DIBU30OI TOP; -FERR325T24 PO
[2023-08-23] MEDS ORDERED: LACTATED RINGERS 1,000 ML 500 ML IV PRN (07:00)
[2023-08-23] MEDS ORDERED: LIDOCAINE 2% w/EPI 1:200,000 20 ML VIAL INJ PRN (07:00)
[2023-08-23] MEDS: D5 LR 1,000 ML IV SOLN 1,000 ML IV SCH ×2 (07:35→15:33)
[2023-08-23 07:41] LABS: EOSINOPHILS # (AUTO) 0.1 10^3/uL (0.0-0.3); EOSINOPHILS % (AUTO) 1 % (0-10); HEMOGLOBIN 11.5 g/dL (11.5-16.0); MEAN PLATELET VOLUME 13.2 fL (9.0-12.2); PLATELET COUNT 198 10^3/uL (130-400)
[2023-08-23 07:42] LABS: BASOPHILS # (AUTO) 0.1 10^3/uL (0.0-0.1); BASOPHILS % (AUTO) 1 % (0-10); HEMATOCRIT 35 % (35-52); LYMPHOCYTES % (AUTO) 33 % (12-44); MEAN CORPUSCULAR HEMOGLOBIN 30 pg (25-34); MEAN CORPUSCULAR HGB CONC 33 g/dL (32-36); MEAN CORPUSCULAR VOLUME 91 fL (80-99); MONOCYTES # (AUTO) 0.6 10^3/uL (0.0-1.0); MONOCYTES % (AUTO) 7 % (0-12); NEUTROPHILS # (AUTO) 5.4 10^3/uL (1.8-7.8); NEUTROPHILS % (AUTO) 59 % (42-75); WHITE BLOOD COUNT 9.1 10^3/uL (4.3-11.0)
[2023-08-23] MEDS ORDERED: OXYTOCIN DRIP PRE-MIX 500 ML IV SCH ×2 (08:00→17:15)
--- NOTE | 2023-08-23 08:15 | History & Physical-OB ---
OB - Chief Complaint & HPI Date/Time Date of Admission: Date of Admission: Aug 23, 2023 at 06:36 Date seen by a Provider: Aug 23, 2023 Time Seen by a Provider: 08:05 Chief Complaint/History OB-Reason for Admission/Chief: Induction of Labor Hx : 5 Hx Para: 3 Expected Date of Delivery: Sep 02, 2023 Gestational Age in Weeks: 38 Gestational Age in Days: 4 Indication for induction: medical complication Other reason for admission: GHTN Admission Nurse Assessment Rev: Yes History of Labs A pos Antibody neg RI RPR NR HBsAg NR HIV NR GC neg GBS neg Allergies and Home Medications Allergies Coded Allergies: No Known Drug Allergies (Unverified , 09/28/19) Patient Home Medication List Home Medication List Reviewed: Yes Aspirin (Aspirin) 81 Mg Tab.chew, 81 MG PO DAILY, (Reported) Entered as Reported by: ALEXI WINSTON on 08/11/23 1113 OB - History Hx of Present Care: Yes Ultrasounds: Normal mid trimester US Obstetrical Complications: Gestational Hypertension Medical Complications: None Delivery History Adverse Rxn to Tranfusion: No Patient Past Medical History n/a Social History/Family History 2nd Hand Smoke Exposure: No Immunizations Hepatitis A: No Hepatitis B: No Tetanus Booster (TDap): Unknown OB - Admission Exam Physical Exam Vitals: Vital Signs 08/23/23 06:58 Temp 36.6 Pulse 84 Resp 18 B/P (MAP) 138/88 (105) Pulse Ox 100 O2 Delivery Room Air HEENT: NCAT Heart: Rhythm Normal Lungs: Clear Abdomen: Gravid Extremities: Normal Reflexes: Normal Cervical Dilatation: 3cm Effacement: 75% Station: -2 Membranes: Intact Heart Rate: 130's Accelerations: Accelerations Present Decelerations: No Decelerations Short Term Variability: Present Sprayer Leather Variability: Average (6-25) Contractions on Admission: 6-10 Minutes Apart Intensity: Mild Sanchez Scoring Tool (Modified) Dilation (cm): 3-4cm (2) Effacement (%): 51-79% (2) Descent/Station: -2 (1) Cervix Consistency: Soft (2) Cervix Position: Middle/Mid-Position (1) Add 1 point for: Each previous vaginal delivery (1) Sanchez Score: 11 Labs Laboratory Tests Test 08/23/23 07:30 Range/Units White Blood Count 9.1 4.3-11.0 10^3/uL Red Blood Count 3.82 3.80-5.11 10^6/uL Hemoglobin 11.5 11.5-16.0 g/dL Hematocrit 35 35-52 % Mean Corpuscular Volume 91 80-99 fL Mean Corpuscular Hemoglobin 30 25-34 pg Mean Corpuscular Hemoglobin Concent 33 32-36 g/dL Red Cell Distribution Width 12.7 10.0-14.5 % Platelet Count 198 130-400 10^3/uL Mean Platelet Volume 13.2 H 9.0-12.2 fL Immature Granulocyte % (Auto) 0 % Neutrophils (%) (Auto) 59 42-75 % Lymphocytes (%) (Auto) 33 12-44 % Monocytes (%) (Auto) 7 0-12 % Eosinophils (%) (Auto) 1 0-10 % Basophils (%) (Auto) 1 0-10 % Neutrophils # (Auto) 5.4 1.8-7.8 10^3/uL Lymphocytes # (Auto) 3.0 1.0-4.0 10^3/uL Monocytes # (Auto) 0.6 0.0-1.0 10^3/uL Eosinophils # (Auto) 0.1 0.0-0.3 10^3/uL Basophils # (Auto) 0.1 0.0-0.1 10^3/uL Immature Granulocyte # (Auto) 0.0 0.0-0.1 10^3/uL Percent Immature Platelet Fraction 13.8 H 0.0-7.6 % Syphilis Total Antibody Negative Negative OB - Assessment/Plan/Diagnosis Assessment Assessment: induction of labor Admission Dx 28 yo @ 38 weeks IOL- GHTN GBS neg Admission Status: Inpatient Order (span 2 midnights) Reason for Inpatient Admission: IOL at 38 weeks Plan Plan: Induction Induction Method: AROM ELVIS GREENE DO Aug 23, 2023 08:15
[2023-08-23] MEDS ORDERED: fentaNYL 2 mcg/ml BUPIVA 0.125 100 ML ONE (11:39)
[2023-08-23] MEDS ORDERED: LACTATED RINGERS 1,000 ML 1,000 ML IV ONE ×3 (11:39→13:00)
[2023-08-23] MEDS ORDERED: fentaNYL INJECTION 100 MCG/2 ML VIAL ONE (12:16)
[2023-08-23] MEDS ORDERED: BUPIVACAINE 0.25% 10 ML VIAL ONE (12:16)
[2023-08-23] MEDS ORDERED: ONDANSETRON INJECTION 4 MG/2 ML (SDV) IV PRN (13:00)
[2023-08-23] MEDS ORDERED: fentaNYL INJECTION 100 MCG/2 ML VIAL INJ ONE (13:00)
[2023-08-23] MEDS ORDERED: NALOXONE 0.4 MG/ML 1 ML VIAL IV PRN ×2 (13:00→17:15)
[2023-08-23] MEDS ORDERED: fentaNYL 2 mcg/ml BUPIVA 0.125 100 ML EPI SCH (13:00)
[2023-08-23] MEDS ORDERED: CATHETER FLUSH 10 ML SYR IV SCH ×2 (14:00→22:00)
[2023-08-23] MEDS ORDERED: Tetanus/Diphtheria/Pertussis (Acell) ADULT Vaccine 0.5 ML IM ONE (17:15)
[2023-08-23] MEDS ORDERED: MEASLES, MUMPS, RUBELLA VACCINE (MMR) SQ ONE (17:15)
[2023-08-23] MEDS ORDERED: DIBUCAINE 1% OINTMENT 28 GM TUBE TOP PRN (17:15)
[2023-08-23] MEDS ORDERED: BENZOCAINE/MENTHOL (DERMOPLAST) 56 ML CAN TP PRN (17:15)
[2023-08-23] MEDS ORDERED: WITCH HAZEL(TUCKS) 40 EA JAR TOP PRN (17:15)
--- NOTE | 2023-08-23 17:17 | OB Labor & Delivery Record ---
L&D History Date of Service Date of Service: Aug 23, 2023 History Expected Date of Delivery: Sep 02, 2023 Gestational Age in Weeks: 38 Hx : 5 Hx Para: 3 Complications Events: Induced HTN, Routine care Operative Indications (Cesarea: N/A-Vaginal Delivery Intrapartal Events: None L&D Stage1 Stage One Onset of Labor - Date: Aug 23, 2023 Monitors and Tracing Monitor Mode: Internal Heart Rate: 135 Monitor Decelerations: Variable Station: -2 Fci Variability: Average (6-10) Short Term Variability: Present Presentation: Vertex Vital Signs VS - Last 72 Hours, by Label 08/23/23 08/23/23 08/23/23 08/23/23 06:58 08:22 08:23 08:37 Temp 36.6 36.4 36.4 Pulse 84 74 74 78 Resp 18 18 18 18 B/P (MAP) 138/88 (105) 131/82 (98) 127/82 (97) Pulse Ox 100 98 O2 Delivery Room Air Room Air Room Air Room Air 08/23/23 08/23/23 08/23/23 08/23/23 08:52 09:07 09:21 09:30 Temp 36.2 Pulse 66 67 73 Resp 18 18 18 B/P (MAP) 106/55 (72) 98/55 (69) 99/55 (70) O2 Delivery Room Air Room Air Room Air 08/23/23 08/23/23 08/23/23 08/23/23 09:38 09:52 10:07 10:22 Pulse 69 67 75 63 Resp 18 18 18 18 B/P (MAP) 124/64 (84) 118/63 (81) 117/65 (82) 125/70 (88) O2 Delivery Room Air Room Air Room Air Room Air 08/23/23 08/23/23 08/23/23 08/23/23 10:37 10:52 11:07 11:22 Pulse 71 75 64 65 Resp 18 18 18 18 B/P (MAP) 120/60 (80) 119/63 (81) 122/65 (84) 130/72 (91) O2 Delivery Room Air Room Air Room Air Room Air 08/23/23 08/23/23 08/23/23 08/23/23 11:38 11:52 12:07 12:23 Pulse 63 68 64 76 Resp 18 18 18 18 B/P (MAP) 151/85 (107) 144/81 (102) 142/89 (106) 121/75 (90) Pulse Ox 98 O2 Delivery Room Air Room Air Room Air Room Air 08/23/23 08/23/23 08/23/23 08/23/23 12:27 12:30 12:33 12:36 Pulse 73 79 79 79 Resp 18 18 18 18 B/P (MAP) 135/82 (99) 140/81 (100) 138/80 (99) 131/79 (96) Pulse Ox 98 97 97 O2 Delivery Room Air Room Air Room Air Room Air 08/23/23 08/23/23 08/23/23 08/23/23 12:40 12:43 12:46 12:49 Pulse 78 87 84 85 Resp 18 18 18 18 B/P (MAP) 134/80 (98) 135/80 (98) 138/76 (96) 137/73 (94) Pulse Ox 97 98 98 O2 Delivery Room Air Room Air Room Air Room Air 08/23/23 08/23/23 08/23/23 08/23/23 12:51 12:52 12:55 12:58 Temp 36.4 Pulse 99 93 97 Resp 18 18 18 B/P (MAP) 143/75 (97) 112/73 (86) 96/51 (66) Pulse Ox 97 97 97 O2 Delivery Room Air Room Air Room Air 08/23/23 08/23/23 08/23/23 08/23/23 13:01 13:04 13:10 13:15 Pulse 77 73 78 76 Resp 18 18 18 18 B/P (MAP) 119/63 (81) 125/75 (92) 127/79 (95) 123/66 (85) Pulse Ox 96 96 96 O2 Delivery Room Air Room Air Room Air Room Air 08/23/23 08/23/23 08/23/23 08/23/23 13:20 13:25 13:30 13:35 Pulse 76 90 86 68 Resp 18 18 18 18 B/P (MAP) 123/68 (86) 122/75 (91) 138/81 (100) 126/77 (93) Pulse Ox 97 97 96 97 O2 Delivery Room Air Room Air Room Air Room Air 08/23/23 08/23/23 08/23/236/23 13:40 13:45 13:50 14:07 Temp 36.3 Pulse 80 68 77 82 Resp 18 18 18 18 B/P (MAP) 135/74 (94) 134/84 (101) 127/80 (96) 137/78 (97) Pulse Ox 97 97 97 98 O2 Delivery Room Air Room Air Room Air Room Air 08/23/23 08/23/23 14:22 14:37 Pulse 70 75 Resp 18 18 B/P (MAP) 132/67 (88) 130/75 (93) Pulse Ox 97 98 O2 Delivery Room Air Room Air Rupture of Membranes Spontaneous Ruture of Membrane: No Amniotic Membrane Rupture Time: 08 Amniotic Membrane Fluid Desc.: Clear Vaginal Bleeding Description: Normal Show Induction/Anesthesia Epidural Cath Placement - Time: 1237 Progress/Notes Patient admitted for IOL this am. Pitocin augmentation and AROM performed. She requested and received an epidural at 5-6 cm dilatation. She then progressed to complete and + 2 station with max dose of 6 mu pitocin. L&D Stage2 Monitors and Tracing Monitor Mode: Internal Heart Rate: 135 Position: Right Occiput Posterior Presentation: Vertex Cord Descript/Complications Cord Vessel Description: 3 Vessels Delivery Type Delivery Method: Spontaneous Vaginal Anterior Shoulder: Left Episiotomy/Perineal Laceration Laceraction(s)/Extensions: Yes Episiotomy Description: Perineal Extension/lac, 1st degree Degree (describe repair) repaired using 3-0 rapide vicyrl suture Condition of Infant Delivery 1 minute Comment: 8 5 minute Comment: 9 Notes Live male weight 8lbs 2 oz Condition of Condition of : Living Exam: No Observed Abnormalities Resuscitation Resuscitation: N/A - Spontaneous Resp L&D Stage3 Stage Three Stage III Date: Aug 23, 2023 Pictocin Pitocin Administration mu/min: 6 Pitocin ml/hr: 6 Pitocin Administration Comment: 30 mu wide open after delivery of placenta Placenta Delivery Placenta Delivery: Spontaneous Delivery Summary Summary Estimated blood loss (mL): 350 Attending at delivery: Elvis Greene DO Condition of Delivery Examined: Cervix Examined, Uterus Explored Post Hemorrhage: No Condition of Mother stable Condition of Infant (s) stable ELVIS GREENE DO Aug 23, 2023 17:17
[2023-08-23] MEDS: ACETAMINOPHEN 500 MG TABLET PO SCH (19:00)
[2023-08-23] MEDS: IBUPROFEN 600 MG TABLET PO SCH (19:00)
[2023-08-23] MEDS: DOCUSATE SODIUM 100 MG CAPSULE PO SCH (21:19)
[2023-08-24] VITALS: BP 135/69
[2023-08-24] MEDS: IBUPROFEN 600 MG TABLET PO SCH ×4 (01:20→17:58)
[2023-08-24] MEDS: ACETAMINOPHEN 500 MG TABLET PO SCH ×2 (03:07→10:40)
[2023-08-24 04:23] VITALS: BP 131/76
[2023-08-24 05:50] LABS: NEUTROPHILS # (AUTO) 7.1 10^3/uL (1.8-7.8)
[2023-08-24 05:52] LABS: BASOPHILS # (AUTO) 0.1 10^3/uL (0.0-0.1); BASOPHILS % (AUTO) 0 % (0-10); EOSINOPHILS # (AUTO) 0.1 10^3/uL (0.0-0.3); EOSINOPHILS % (AUTO) 1 % (0-10); HEMATOCRIT 33 % (35-52); HEMOGLOBIN 10.8 g/dL (11.5-16.0); LYMPHOCYTES # (AUTO) 3.7 10^3/uL (1.0-4.0); LYMPHOCYTES % (AUTO) 31 % (12-44); MEAN CORPUSCULAR HEMOGLOBIN 30 pg (25-34); MEAN CORPUSCULAR HGB CONC 33 g/dL (32-36); MEAN CORPUSCULAR VOLUME 91 fL (80-99); MEAN PLATELET VOLUME 13.1 fL (9.0-12.2); MONOCYTES # (AUTO) 0.8 10^3/uL (0.0-1.0); MONOCYTES % (AUTO) 7 % (0-12); NEUTROPHILS % (AUTO) 60 % (42-75); PLATELET COUNT 186 10^3/uL (130-400); WHITE BLOOD COUNT 11.7 10^3/uL (4.3-11.0)
[2023-08-24] MEDS: D5 LR 1,000 ML IV SOLN 1,000 ML IV SCH (05:54)
[2023-08-24] MEDS ORDERED: PRENATAL VITAMIN TABLET PO SCH (07:00)
--- NOTE | 2023-08-24 07:37 | Postpartum Progress Note ---
BRANDO VALLE 08/24/23 0737: Note Note Day # 1 Subjective: Patient is without complaints. Ambulating, voiding. Tolerating a regular diet without nausea or vomiting. Normal lochia. Pain is well controlled with oral pain medications. [] feeding. [place] was removed. Patient on stool softeners, has not produced bowel movement. Objective: Laboratory Tests 08/24/23 05:34: White Blood Count 11.7H, Red Blood Count 3.61L, Hemoglobin 10.8L, Hematocrit 33L , Mean Corpuscular Volume 91, Mean Corpuscular Hemoglobin 30, Mean Corpuscular Hemoglobin Concent 33, Red Cell Distribution Width 12.6, Platelet Count 186, Mean Platelet Volume 13.1H, Immature Granulocyte % (Auto) 0, Neutrophils (%) (Auto) 60, Lymphocytes (%) (Auto) 31, Monocytes (%) (Auto) 7, Eosinophils (%) (Auto) 1, Basophils (%) (Auto) 0, Neutrophils # (Auto) 7.1, Lymphocytes # (Auto) 3.7, Monocytes # (Auto) 0.8, Eosinophils # (Auto) 0.1, Basophils # (Auto) 0.1, Immature Granulocyte # (Auto) 0.1, Percent Immature Platelet Fraction 12.2H Vital Signs 08/24/23 04:23 Temp 36.1 Pulse 68 Resp 16 B/P (MAP) 131/76 (94) Pulse Ox 98 O2 Delivery Room Air Physical Exam: General - Alert and oriented, no apparent distress Abdomen - Soft, appropriately tender to palpation, non-distended, fundus firm at umbilicus Extremities - no edema, negative Joselito's bilaterally Assessment: Post- day # 1, status post vaginal delivery. Recovering well, hemodynamically stable First-degree perineal tear IOL-GHTN GBS neg Plan: Routine care. Encourage breast feeding. Encourage ambulation. Ferrous sulfate supplementation. Plan for discharge Vitals - Labs Vital Signs - I&O Vital Signs Date Time Temp Pulse Resp B/P (MAP) Pulse Ox O2 Delivery O2 Flow Rate FiO2 08/24/23 04:23 36.1 68 16 131/76 (94) 98 Room Air 08/24/23 00:00 36.8 76 16 135/69 (91) 97 Room Air 08/23/23 19:20 76 18 133/60 (84) Room Air 08/23/23 19:05 82 18 147/70 (95) Room Air 08/23/23 18:50 36.4 90 18 144/75 (98) Room Air 08/23/23 18:35 81 18 135/71 (92) Room Air 08/23/23 18:20 18 125/60 (81) Room Air 08/23/23 18:05 67 18 132/60 (84) Room Air 08/23/23 17:50 72 18 137/62 (87) Room Air 08/23/23 17:35 18 129/62 (84) Room Air 08/23/23 17:28 36.6 08/23/23 17:20 75 18 127/57 (80) Room Air 08/23/23 17:12 36.7 08/23/23 17:05 84 18 135/71 (92) Room Air 08/23/23 16:52 74 18 166/78 (107) 100 Room Air 08/23/23 16:37 68 18 118/58 (78) 99 Room Air 08/23/23 16:21 69 18 122/57 (78) 100 Room Air 08/23/23 16:06 61 18 126/60 (82) 99 Room Air 08/23/23 15:51 76 18 135/67 (89) 99 Room Air 08/23/23 15:36 71 18 134/63 (86) 98 Room Air 08/23/23 15:30 36.4 08/23/23 15:21 86 18 134/77 (96) 97 Room Air 08/23/23 15:07 77 18 125/68 (87) 98 Room Air 08/23/23 14:51 36.3 73 18 129/74 (92) 97 Room Air 08/23/23 14:37 75 18 130/75 (93) 98 Room Air 08/23/23 14:22 70 18 132/67 (88) 97 Room Air 08/23/23 14:07 82 18 137/78 (97) 98 Room Air 08/23/23 13:50 36.3 77 18 127/80 (96) 97 Room Air 08/23/23 13:45 68 18 134/84 (101) 97 Room Air 08/23/23 13:40 80 18 135/74 (94) 97 Room Air 08/23/23 13:35 68 18 126/77 (93) 97 Room Air 08/23/23 13:30 86 18 138/81 (100) 96 Room Air 08/23/23 13:25 90 18 122/75 (91) 97 Room Air 08/23/23 13:20 76 18 123/68 (86) 97 Room Air 08/23/23 13:15 76 18 123/66 (85) 96 Room Air 08/23/23 13:10 78 18 127/79 (95) 96 Room Air 08/23/23 13:04 73 18 125/75 (92) Room Air 08/23/23 13:01 77 18 119/63 (81) 96 Room Air 08/23/23 12:58 97 18 96/51 (66) 97 Room Air 08/23/23 12:55 93 18 112/73 (86) 97 Room Air 08/23/23 12:52 99 18 143/75 (97) 97 Room Air 08/23/23 12:51 36.4 08/23/23 12:49 85 18 137/73 (94) 98 Room Air 08/23/23 12:46 84 18 138/76 (96) 98 Room Air 08/23/23 12:43 87 18 135/80 (98) 97 Room Air 08/23/23 12:40 78 18 134/80 (98) Room Air 08/23/23 12:36 79 18 131/79 (96) 97 Room Air 08/23/23 12:33 79 18 138/80 (99) Room Air 08/23/23 12:30 79 18 140/81 (100) 97 Room Air 08/23/23 12:27 73 18 135/82 (99) 98 Room Air 08/23/23 12:23 76 18 121/75 (90) 98 Room Air 08/23/23 12:07 64 18 142/89 (106) Room Air 08/23/23 11:52 68 18 144/81 (102) Room Air 08/23/23 11:38 63 18 151/85 (107) Room Air 08/23/23 11:22 65 18 130/72 (91) Room Air 08/23/23 11:07 64 18 122/65 (84) Room Air 08/23/23 10:52 75 18 119/63 (81) Room Air 08/23/23 10:37 71 18 120/60 (80) Room Air 08/23/23 10:22 63 18 125/70 (88) Room Air 08/23/23 10:07 75 18 117/65 (82) Room Air 08/23/23 09:52 67 18 118/63 (81) Room Air 08/23/23 09:38 69 18 124/64 (84) Room Air 08/23/23 09:30 36.2 08/23/23 09:21 73 18 99/55 (70) Room Air 08/23/23 09:07 67 18 98/55 (69) Room Air 08/23/23 08:52 66 18 106/55 (72) Room Air 08/23/23 08:37 78 18 127/82 (97) Room Air 08/23/23 08:23 36.4 74 18 98 Room Air 08/23/23 08:22 36.4 74 18 131/82 (98) Room Air I & O 08/24/23 07:00 Intake Total 1700 ml Output Total 600 ml Balance 1100 ml Labs Laboratory Tests 08/24/23 05:34: White Blood Count 11.7H, Red Blood Count 3.61L, Hemoglobin 10.8L, Hematocrit 33L , Mean Corpuscular Volume 91, Mean Corpuscular Hemoglobin 30, Mean Corpuscular Hemoglobin Concent 33, Red Cell Distribution Width 12.6, Platelet Count 186, Mean Platelet Volume 13.1H, Immature Granulocyte % (Auto) 0, Neutrophils (%) (Auto) 60, Lymphocytes (%) (Auto) 31, Monocytes (%) (Auto) 7, Eosinophils (%) (Auto) 1, Basophils (%) (Auto) 0, Neutrophils # (Auto) 7.1, Lymphocytes # (Auto) 3.7, Monocytes # (Auto) 0.8, Eosinophils # (Auto) 0.1, Basophils # (Auto) 0.1, Immature Granulocyte # (Auto) 0.1, Percent Immature Platelet Fraction 12.2H CHRIS GREENE DO 08/24/23 0739: Note Note Verification and Attestation of Medical Student E/M Service A medical student performed and documented this service in my presence. I reviewed and verified all information documented by the medical student and made modifications to such information, when appropriate. I personally performed the physical exam and medical decision making. Chris Greene, Aug 24, 2023,07:39 BRANDO VALLE Aug 24, 2023 07:37 CHRIS GREENE DO Aug 24, 2023 07:39
[2023-08-24] MEDS ORDERED: FERROUS SULFATE 325 MG (IRON) TABLET PO SCH (09:00)
[2023-08-24 09:45] VITALS: BP 134/67
[2023-08-24] MEDS: DOCUSATE SODIUM 100 MG CAPSULE PO SCH (09:49)
[2023-08-24 13:15] VITALS: BP 135/79
[2023-08-24 16:45] VITALS: BP 121/68
--- NOTE | 2023-08-24 18:21 | Discharge Inst-Women's Service ---
Discharge Inst-Women's Serv Depart Medication/Instructions New, Converted or Re-Newed RX: Transmitted to Pharmacy Final Diagnosis PPD 1 NVD Problems Reviewed?: Yes Consults/Follow Up Additional Follow Up: Yes Orders/Referrals Dr. Greene in 6 weeks Activity Driving Instructions: No Driving for 1 Week NO SMOKING: NO SMOKING Nothing Inside Vagina: No Douching, No [place], No Tampons Diet Discharge Diet: No Restrictions Symptoms to Report to : Bleeding Excessive, Pain Increased, Fever Over 101 Degrees F, Vaginal Bleeding Increase, Questions/Concerns For Any Problems or Questions: Contact Your Physician ELVIS GREENE DO Aug 24, 2023 18:21
[2023-08-24] MEDS ORDERED: FERR325T24 PO (18:23)
[2023-08-24] MEDS ORDERED: DOCU100C37 PO (18:23)
[2023-08-24] MEDS ORDERED: BENZ78AE5 TP (18:23)
[2023-08-24] MEDS ORDERED: IBUP-844 PO (18:23)
[2023-08-24] MEDS ORDERED: ACET-93 PO (18:23)
[2023-08-24] MEDS ORDERED: DIBU30OI TOP (18:23)
[2023-08-24 19:10] VITALS: BP 121/68
== END 2023-08-24 19:10 | disposition home or self-care (01) | DRG 807 ==
LOC: LDRP 06:36
PROVIDERS: ADMIT Obstetrics & Gynecology; ATTEND Obstetrics & Gynecology
PROC: 10E0XZZ Delivery of Products of Conception, External Approach (ICD-10-PCS; principal; 2023-08-23)
PROC: 10907ZC Drainage of Amniotic Fluid, Therapeutic from Products of Conception, Via Natural or Artificial Opening (ICD-10-PCS; 2023-08-23)
PROC: 0HQ9XZZ Repair Perineum Skin, External Approach (ICD-10-PCS; 2023-08-23)
DX: O13.4 Gestational [pregnancy-induced] hypertension without significant proteinuria, complicating childbirth (principal); Z37.0 Single live birth; Z3A.38 38 weeks gestation of pregnancy
CPT/HCPCS: 36415; 85025; 86780; 86850; 86900; 86901